=== PATIENT | male | born 2000 | race African-American/Black ===

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

== ENCOUNTER 2024-04-04 11:39 | Emergency (ER) | payer MEDICAID ==
[~2024-04-04] VITALS: Ht 182.9 cm; Wt 74.0 kg
[2024-04-04 11:47] VITALS: BP 114/69; TEMP 98.2; O2SAT 100
[2024-04-04 11:48] VITALS: PULSE 72; RESP 18
[2024-04-04 12:10] LABS: BASOPHILS % 0.9 % (0.0-2.0); HEMATOCRIT. 39.2 % (42.0-52.0); HEMOGLOBIN. 13.1 g/dL (14.0-18.0); LYMPHOCYTES % 39.6 % (20.0-50.0); MEAN CORPUSCULAR HEMOGLOBIN 27.5 pg (28.0-32.0); MEAN CORPUSCULAR HGB CONC 33.4 g/dL (31.0-37.0); MEAN CORPUSCULAR VOLUME 82.1 fL (80.0-94.0); MEAN PLATELET VOLUME 7.2 fl (7.4-10.4); MONOCYTES % 9.1 % (2.0-8.0); NEUTROPHILS % 44.4 % (40.0-76.0); PLATELET 184 x1000/uL (130-400); RED BLOOD CELL COUNT 4.77 mill/uL (4.7-6.1); RED CELL DISTRIBUTION WIDTH 14.5 % (11.6-14.6); WHITE BLOOD COUNT 4.4 x1000/uL (4.5-11.0)
[2024-04-04 12:30] LABS: CHLORIDE 104 mEq/L (98-107); POTASSIUM 3.7 mEq/L (3.5-5.1); SODIUM 138 mEq/L (136-145)
[2024-04-04 12:31] LABS: CARBON DIOXIDE 28 mEq/L (21-32)
[2024-04-04 12:36] LABS: GLUCOSE 83 mg/dL (70-105); UREA NITROGEN BLOOD 14 mg/dL (9-23)
== END 2024-04-04 14:48 | disposition left against medical advice (07) ==
LOC: ER 11:39
DX: R68.89 Other general symptoms and signs (principal)
CPT/HCPCS: 36415; 80048; 85025; 99283